=== PATIENT | female | born 1965 | race Caucasian/White ===

== ENCOUNTER 2022-10-15 15:02 | Inpatient (IN) | payer MEDICAID, SELFPAY ==
[2022-10-15 15:04] VITALS: BP 144/77; PULSE 68; RESP 16; TEMP 36.6; O2SAT 99; BMI 19.6
--- NOTE | 2022-10-15 15:17 | EX.ED.SAOD ---
HPI History of Present Illness Chief Complaint: Substance Abuse Informant: patient Narrative Narrative: Patient presents requesting detox from heroin. She actually went through detox when she went to skilled nursing in 2019. She was clean for 3 years but has been using again the last year. She used to inject but has not injected since 2019. She only snorts. She was trying to get help. She went to [facility] and they referred her here for treatment. Follow-up with On review of systems she does mention that she has been having some coughing and wheezing but she is also been out of her inhaler for about 2 weeks and she has been coughing for about 2 weeks. No fevers or chills. No sputum production. No chest pain. She does not have myalgias. She has no abdominal pain. She occasionally has diarrhea if she does not use but is not having it now. No blood in the stools. No abdominal pain. She is eating and drinking. No rashes. No headaches. Past medical history includes substance abuse, COPD, depression and restless leg Medications are albuterol inhaler, Remeron, Effexor, gabapentin Past surgeries include gallbladder Denies allergies Back pain lives independently. Currently no place to live. Positive smoker and drug use as above [facility] Medical History (Updated 10/15/22 @ 17:27 by Génesis Nielsen) COPD (chronic obstructive pulmonary disease) Hepatitis Smoker Substance abuse Allergy/AdvReac Type Severity Reaction Status Date / Time No Known Allergies Allergy Verified 10/15/22 15:04 Social History Smoking Status: Current every day smoker tobacco type: cigarettes ROS ROS ED Constitutional Constitutional ED: Denies chills or fever(s) Eyes Eyes: Denies change in vision ENT ENT ED: Denies rhinorrhea or sore throat Cardiovascular Cardiovascular: Denies chest pain, palpitations or racing heartbeat Respiratory/Chest Respiratory/Chest: Reports cough; Denies dyspnea Gastrointestinal Gastrointestinal: Reports diarrhea; Denies abdominal pain, nausea or vomiting Genitourinary Genitourinary ED: Denies dysuria Musculoskeletal Musculoskeletal: Denies myalgias Integumentary Denies rash Neurologic Neurologic: Denies headache(s) Psychiatric Psychiatric: Reports depression Endocrine Endocrinology: Denies polydipsia or polyuria Hematologic/Lymphatic Hematologic/Lymphatic: Denies lymphadenopathy Allergic/Immunologic Allergic/Immunologic ED: Denies urticaria EXAM Physical Exam Narrative Exam Narrative: Patient awake alert and very nontoxic while sitting in bed. She carries on a normal conversation and has no indication of dyspnea. HEENT shows no sign of trauma. I see no icterus. Mucous membranes are moist. Neck is supple. No JVD. No significant thyromegaly. Lungs do show very small amount of end expiratory wheezing. No rhonchi or rales. No pain with a deep breath. Heart is regular without murmur gallop rub or muffled tones. Peripheral pulses are normal. Abdomen is soft completely nontender Flank shows no CVAT. : No CVA or suprapubic tenderness Extremities show no sign of active track romero. Pulses are normal. Color is normal. Neuro: Patient awake alert normal gait coordination and speech. Psych: Patient is pleasant makes good eye contact. No sign of acute depression. Const Vital Signs: 10/15/22 15:04 Temperature 98 F Temperature Source Temporal Pulse Rate 68 Respiratory Rate 16 Blood Pressure 144/77 H Blood Pressure Mean 99 Pulse Ox 99 Oxygen Delivery Method Room Air MDM MDM MDM Narrative Medical decision making narrative: I phoned and discussed directly with our hospitalist the patient's history and exam and treatment done here. We did do blood work. His CBC shows no marked abnormalities. Electrolytes were normal. Liver function test showed no acute process. Talk screen is ordered but pending. Patient will be admitted for further management and detox. Lab Data Attestation: I reviewed the patient's lab results. Labs: Laboratory Results - last 24 hr 10/15/22 10/15/22 16:05 16:05 WBC 10.2 RBC 3.95 L Hgb 12.5 Hct 37.2 MCV 94.2 MCH 31.6 MCHC 33.6 RDW Std Deviation 45.1 H RDW Coeff of Megha 13.0 Plt Count 218 MPV 9.3 Immature Gran % (Auto) 0.500 Neut % (Auto) 51.4 Lymph % (Auto) 38.6 [place] % (Auto) 7.4 Eos % (Auto) 1.5 Baso % (Auto) 0.6 Absolute Neuts (auto) 5.3 Absolute Lymphs (auto) 3.94 Nucleated RBC % 0 Sodium 141 Potassium 3.6 Chloride 106 Carbon Dioxide 26.0 Anion Gap 9 BUN 7 Creatinine 0.60 Estim Creat Clear Calc 93.55 Est GFR (MDRD) Af Amer 133 Est GFR (MDRD) Non-Af 110 BUN/Creatinine Ratio 11.7 Glucose 110 H Calcium 9.2 Total Bilirubin 0.20 AST 9 L ALT 17 Alkaline Phosphatase 81 Total Protein 6.9 Albumin 3.5 Globulin 3.4 Albumin/Globulin Ratio 1.0 Discharge Plan Dx/Rx/DC Orders Clinical Impression: Heroin abuse, Desire for detoxification, COPD (chronic obstructive pulmonary disease), Bronchospasm Disposition Disposition: Acute Care Hospital [facility] Discharge Date/Time: 10/15/22 17:10
[2022-10-15] MEDS: Ipratropium/Albuterol Sulfate 3 ML AMPUL.NEB INHALATION (15:23)
--- NOTE | 2022-10-15 15:26 | CM.ED ---
SHAD Note Referral Reason: RAMP Referral Source: Case Find SW met with patient to discuss the RAMP program. Patient reports they are detoxing from heroin. Last use was this morning at 11:00am. Patient reports she used 30 cc which she snorts. Patient previously had detox at [facility] 7 years ago. Patient is linked with [facility] in [place] for MAT and IOP programming. Patient was advised that the RAMP program includes no outside food or visitors, no phone access and all personal items are secured. SHAD called Treatment Navigator and updated her regarding patient?s admission to RAMP. Plan: RAMP Paola HARP
[2022-10-15 16:13] LABS: Absolute Lymphocyte Count 3.94 X10^3/uL (0.83-4.51); Absolute Neutrophil Count 5.3 X10^3/uL (2.0-7.7); Basophil# 0.06 X10^3/uL; Basophil% 0.6 % (0-1); Eosinophil# 0.15 X10^3/uL; Eosinophils% 1.5 % (0-5); Hematocrit 37.2 % (37-47); Hemoglobin 12.5 g/dL (12.0-15.0); Lymphocyte # 3.94 X10^3/ul (0.83-4.51); Lymphocyte % 38.6 % (19-41); Mean Corp Hgb Conc 33.6 g/dL (32-36); Mean Corpuscular Hgb 31.6 pg (27.0-32.0); Mean Corpuscular Volume 94.2 fL (81-99); Mean Platelet Vol. 9.3 fl (6.2-12.0); Monocyte# 0.76 X10^3/uL; Monocyte% 7.4 % (0-10); NRBC Flagged by Analyzer 0 % (0-5); Neutrophil # 5.25 X10^3/uL (2.7-7.7); Neutrophil % 51.4 % (47-70); Platelet Count 218 K/mm3 (150-450); RBC Distribution Width SD 45.1 fl (35.1-43.9); Red Blood Count 3.95 M/mm3 (4.2-5.4); White Blood Count 10.2 K/mm3 (4.4-11.0)
--- NOTE | 2022-10-15 16:28 | HP.PCM.HOS_ITS ---
HPI - General General Date of Admission: 10/15/22 Date of Service: 10/15/22 Chief Complaint: opiate detox HPI Narrative BONNIE SMART, is a 57 F with a past medical history as outlined who presents via the ED for acute opiate withdrawal. Patient says she uses heroin. She was on Suboxone but says she has not taken it for about a month and a half and subsequently went back to using heroin. Last use was a few hours prior to this admission. She snorts the heroin and says she does not use IV. She also admits to some coughing and wheezing because she had been out of her inhaler for about 2 weeks. Her cough is nonproductive. She denies any fever or chills and denies any chest pain. She denies any tremors but does feel like she is going through withdrawal and admits to some abdominal cramps. Review of systems otherwise negative. Vitals in the ED were blood pressure 144/77, pulse rate of 68 and respiratory rate of 16 with temperature of 98 Fahrenheit. She was saturating at 99% on room air. CBC was essentially unremarkable and BMP was also pending at time of review. Urine tox also pending. She has been admitted to be managed for acute opiate detox. [facility] Allergy/AdvReac Type Severity Reaction Status Date / Time No Known Allergies Allergy Verified 10/15/22 15:04 Social History Smoking Status: Current every day smoker tobacco type: cigarettes ROS Constitutional Constitutional: Denies anorexia, chills, fatigue, fever(s), malaise or weakness Eyes Eyes: Denies change in vision ENT HEENT: Denies dysphagia, headache(s), hearing loss, nasal congestion, nasal discharge or sore throat Cardiovascular Cardiovascular: Denies chest pain, dyspnea on exertion, edema, lightheadedness, orthopnea, palpitations, paroxysmal nocturnal dyspnea, rapid heart rate or syncope Respiratory/Chest Respiratory/Chest: Reports cough, dyspnea, shortness of breath at rest and wheezing; Denies excessive phlegm production, productive cough or shortness of breath with exertion Gastrointestinal Gastrointestinal: Denies abdominal pain, constipation, diarrhea, nausea or vomiting Genitourinary Genitourinary: Denies burning urination, dysuria or urinary frequency Musculoskeletal Musculoskeletal: Denies back pain or joint pain Neurologic Neurologic: Denies confusion, dizziness, focal weakness, headache(s), seizures or syncope Psychiatric Psychiatric: Denies anxiety or depression Hematologic/Lymphatic Hematologic/Lymphatic: Denies anemia Vital Signs Vital Signs Vital Signs: 10/15/22 15:04 Temperature 98 F Temperature Source Temporal Pulse Rate 68 Respiratory Rate 16 Blood Pressure 144/77 H Blood Pressure Mean 99 Pulse Ox 99 Oxygen Delivery Method Room Air Weight Weight: 129 lb 6.581 oz Body Mass Index (BMI) 19.6 Physical Exam Const alert, oriented x3 and no apparent distress General Appearance: cooperative HEENT normocephalic, head/scalp atraumatic, hearing grossly normal bilaterally and moist oral mucous membranes Mouth: oral and palatal mucosa normal Eyes PERRL, EOMs intact bilaterally and conjunctivae normal Neck no lymphadenopathy, supple and no JVD Resp Resp Narrative: mildly diminished breath sounds bibasally, no wheezing, no crackles. on room air. Cardio regular rate, regular rhythm, S1 normal heart sound, S2 normal heart sound and no murmurs GI normal to inspection, nondistended, normoactive bowel sounds, soft to palpation, non-tender and non-distended Extremity normal to inspection, full ROM and no clubbing, cyanosis or edema Neuro oriented x3, CN's II-XII intact bilaterally, moves all extremities and no focal motor deficits Sensorium / Orientation: awake and alert Motor Exam: strength 5/5 throughout Psych affect normal Results Lab / Micro Data Result Diagrams: 10/15/22 16:05 10/15/22 16:05 Labs: Laboratory Results - last 24 hr 10/15/22 16:05: WBC 10.2, RBC 3.95 L, Hgb 12.5, Hct 37.2, MCV 94.2, MCH 31.6, MCHC 33.6, RDW Std Deviation 45.1 H, RDW Coeff of Megha 13.0, Plt Count 218, MPV 9.3, Immature Gran % (Auto) 0.500, Neut % (Auto) 51.4, Lymph % (Auto) 38.6, [place] % (Auto) 7.4, Eos % (Auto) 1.5, Baso % (Auto) 0.6, Absolute Neuts (auto) 5.3, Absolute Lymphs (auto) 3.94, Nucleated RBC % 0 Assessment & Plan Assessment/Plan (1) Desire for detoxification: (2) Heroin abuse: PLAN: Plan #Acute opioid withdrawal * admit to med surg * urine tox pending * start on opioid withdrawal protocol with buprenorphine * monitor CINA score * adjunctive meds for symptomatic relief * #Mild COPD exacerbation' * has not been using her inhalers for the past 2 weeks * place on PO prednisone 40mg daily * breathing treatment with bronchodilators * * #Nicotine dependence: counseled to quit. Nicotine patch 21mg daily DVT prophylaxis: low risk, encourage to ambulate Charges/Coding Visit Charges Inpatient E&M: 18756 Init Hosp L3
[2022-10-15 16:31] LABS: AST(SGOT) 9 U/L (15-37); Alanine Aminotransfer ALT/SGPT 17 U/L (13-56); Albumin, Serum 3.5 g/dL (3.2-5.0); Alkaline Phosphatase 81 U/L (45-117); Anion Gap 9 (5-15); BUN 7 mg/dL (7-18); BUN/Creat Ratio 11.7 RATIO (10-20); Calcium,Total 9.2 mg/dL (8.5-10.1); Chloride 106 mmol/L (98-107); EST Glomerular Filtration Rate 110 mL/min (>60); Est Glom Filt Rate - Afr Amer 133 mL/min (>60); Estimated Creatinine Clearance 93.55 ml/min; Globulin 3.4 g/dL (2.2-4.2); Glucose 110 mg/dL (74-106); Potassium 3.6 mmol/L (3.5-5.1); Protein, Total 6.9 g/dL (6.4-8.2); Sodium Level 141 mmol/L (136-145)
[2022-10-15 16:33] VITALS: BP 110/76; PULSE 71; RESP 14; TEMP 36.4; O2SAT 94
[2022-10-15 17:21] VITALS: BMI 19.5
[2022-10-15 17:30] VITALS: BP 118/70; PULSE 76; RESP 18; TEMP 36.9; O2SAT 98
[2022-10-15] MEDS: predniSONE 20 MG Tablet 40 MG PO (17:43)
--- NOTE | 2022-10-15 19:02 | CM.ED ---
SHAD called contact lens assistant navigator for [place], Nae, and requested patient be seen. Nae will follow up on 10/16/22. Paola HARP
[2022-10-15 22:03] VITALS: BP 155/89; PULSE 68; RESP 18; TEMP 36.8; O2SAT 98
[2022-10-16 03:39] VITALS: BP 158/86; PULSE 74; RESP 16; TEMP 36.9; O2SAT 99
[2022-10-16] MEDS: Methocarbamol 750 MG Tablet 1500 MG PO ×2 (04:11→10:45)
[2022-10-16] MEDS: hydrOXYzine PAM 25 MG Capsule 50 MG PO ×2 (04:11→10:45)
[2022-10-16] MEDS: cloNIDine HCl 0.1 MG Tablet PO ×2 (04:11→12:24)
[2022-10-16] MEDS: Buprenorphine HCl 2 MG TAB.SUBL 4 MG SL ×2 (04:16→12:24)
[2022-10-16 06:19] LABS: Amphetamine Urine VISTA NEGATIVE (<1000 ng/mL); Barbiturate Urine VISTA NEGATIVE (< 200 ng/mL); Benzodiazepine Urine VISTA NEGATIVE (< 200 ng/mL); Cocaine Urine VISTA NEGATIVE (< 300 ng/mL); Ecstacy Urine VISTA NEGATIVE (< 500 ng/mL); Methadone Urine VISTA NEGATIVE (< 300 ng/mL); PCP Urine VISTA NEGATIVE (< 25 ng/mL); THC Urine VISTA NEGATIVE (< 50 ng/mL); Vista UDS pH Range 7
[2022-10-16 06:50] LABS: Absolute Lymphocyte Count 1.56 X10^3/uL (0.83-4.51); Absolute Neutrophil Count 12.6 X10^3/uL (2.0-7.7); Basophil# 0.04 X10^3/uL; Basophil% 0.3 % (0-1); Hematocrit 41.4 % (37-47); Hemoglobin 13.9 g/dL (12.0-15.0); Lymphocyte # 1.56 X10^3/ul (0.83-4.51); Lymphocyte % 10.6 % (19-41); Mean Corp Hgb Conc 33.6 g/dL (32-36); Mean Corpuscular Hgb 31.2 pg (27.0-32.0); Mean Platelet Vol. 9.7 fl (6.2-12.0); Monocyte# 0.49 X10^3/uL; Monocyte% 3.3 % (0-10); NRBC Flagged by Analyzer 0 % (0-5); Neutrophil # 12.59 X10^3/uL (2.7-7.7); Neutrophil % 85.4 % (47-70); Platelet Count 242 K/mm3 (150-450); RBC Distribution Width SD 44.5 fl (35.1-43.9); Red Blood Count 4.45 M/mm3 (4.2-5.4); White Blood Count 14.7 K/mm3 (4.4-11.0)
[2022-10-16 07:16] LABS: Anion Gap 8 (5-15); BUN 13 mg/dL (7-18); BUN/Creat Ratio 21.7 RATIO (10-20); Chloride 106 mmol/L (98-107); EST Glomerular Filtration Rate 109 mL/min (>60); Est Glom Filt Rate - Afr Amer 131 mL/min (>60); Estimated Creatinine Clearance 92.76 ml/min; Glucose 123 mg/dL (74-106); Potassium 4.3 mmol/L (3.5-5.1); Sodium Level 138 mmol/L (136-145)
--- NOTE | 2022-10-16 07:36 | PN.HOSP_ITS ---
Subjective Subjective Patient is a 57-year-old lady with history of opioid dependence admitted with acute opioid withdrawal admitted to regular nursing floor for further management Objective Data Objective Data Vital Signs: Vital Signs Temp Pulse Resp BP Pulse Ox O2 Del Method 98.4 F 74 16 158/86 H 99 Room Air 10/16/22 03:39 10/16/22 03:39 10/16/22 03:39 10/16/22 03:39 10/16/22 03:39 10/16/22 03:39 Oxygen Delivery Method Room Air Weight: 58.202 kg Body Mass Index (BMI) 19.5 Intake & Output: Intake and Output for Last 24 Hours 10/14/22 10/15/22 10/16/22 23:59 23:59 23:59 Output Total 1000 / 1000 Balance -1000 / -1000 Lab / Micro Data Result Diagrams: 10/16/22 05:49 10/16/22 05:49 Labs: Laboratory Results - last 24 hr 10/15/22 16:05: WBC 10.2, RBC 3.95 L, Hgb 12.5, Hct 37.2, MCV 94.2, MCH 31.6, MCHC 33.6, RDW Std Deviation 45.1 H, RDW Coeff of Megha 13.0, Plt Count 218, MPV 9.3, Immature Gran % (Auto) 0.500, Neut % (Auto) 51.4, Lymph % (Auto) 38.6, [place] % (Auto) 7.4, Eos % (Auto) 1.5, Baso % (Auto) 0.6, Absolute Neuts (auto) 5.3, Absolute Lymphs (auto) 3.94, Nucleated RBC % 0 10/15/22 16:05: Sodium 141, Potassium 3.6, Chloride 106, Carbon Dioxide 26.0, Anion Gap 9, BUN 7, Creatinine 0.60, Estim Creat Clear Calc 93.55, Est GFR (MDRD) Af Amer 133, Est GFR (MDRD) Non-Af 110, BUN/Creatinine Ratio 11.7, Glucose 110 H, Calcium 9.2, Total Bilirubin 0.20, AST 9 L, ALT 17, Alkaline Phosphatase 81, Total Protein 6.9, Albumin 3.5, Globulin 3.4, Albumin/Globulin Ratio 1.0 10/16/22 05:30: Urine Opiates Screen POSITIVE H, Urine Methadone Screen NEGATIVE, Ur Barbiturates Screen NEGATIVE, Ur Phencyclidine Scrn NEGATIVE, Ur Amphetamines Screen NEGATIVE, MDMA (Ecstasy) Screen NEGATIVE, U Benzodiazepines Scrn NEGATIVE, Urine Cocaine Screen NEGATIVE, U Cannabinoids Screen NEGATIVE, Ur Drug Screen Comment 10/16/22 05:49: WBC 14.7 H, RBC 4.45, Hgb 13.9, Hct 41.4, MCV 93.0, MCH 31.2, MCHC 33.6, RDW Std Deviation 44.5 H, RDW Coeff of Megha 13.0, Plt Count 242, MPV 9.7, Immature Gran % (Auto) 0.400, Neut % (Auto) 85.4 H, Lymph % (Auto) 10.6 L, [place] % (Auto) 3.3, Eos % (Auto) 0.0, Baso % (Auto) 0.3, Absolute Neuts (auto) 12.6 H, Absolute Lymphs (auto) 1.56, Nucleated RBC % 0 10/16/22 05:49: Sodium 138, Potassium 4.3, Chloride 106, Carbon Dioxide 24.0, Anion Gap 8, BUN 13, Creatinine 0.60, Estim Creat Clear Calc 92.76, Est GFR (MDRD) Af Amer 131, Est GFR (MDRD) Non-Af 109, BUN/Creatinine Ratio 21.7 H, Glucose 123 H, Calcium 10.0 Physical Exam Narrative GENERAL: Agitated HEENT: Atraumatic; normocephalic EYES; Anicteric, Normal Conjunctiva NECK; supple, normal thyroid, RESPIRATORY: Diminished to auscultation CARDIOVASCULAR: Regular S1 S2, GI: soft, normoactive bowel sounds, : No Renal angle tenderness; EXTREMITIES: No edema, no clubbing, MUSCULOSKELETAL: no muscle wasting NEURO: Awake; no lateralizing signs. SKIN: No Rash PSYCH; agitated Assessment & Plan Assessment/Plan (1) Desire for detoxification: (2) Heroin abuse: PLAN: Plan Patient is a 57-year-old lady with history of opioid dependence admitted with acute opioid withdrawal admitted to regular nursing floor for further management 1. Acute opioid withdrawal Patient has been admitted to regular nursing floor managed with buprenorphine taper in addition to adjuvant medications for symptom relief 2. COPD with mild exacerbation ? Patient was placed on p.o. prednisone in addition to bronchodilator treatment and doxycycline 3. Tobacco dependence - Counseled on cessation, offered nicotine patch for tobacco cravings 4. DVT prophylaxis ? SC Lovenox Time spent in the patient's overall evaluation,decision-making process, review of diagnostic data, adjustment of management, discussion with other providers, nursing nursing and ancillary staff involved in patient's care documentation, 35 Minutes Charges/Coding Visit Charges Inpatient E&M: 12796 Subs Hosp L2
[2022-10-16 08:30] VITALS: BP 149/94; PULSE 78; RESP 20; TEMP 36.9; O2SAT 100
[2022-10-16] MEDS: predniSONE 20 MG Tablet 40 MG PO (08:37)
[2022-10-16] MEDS: Gabapentin 300 MG Capsule PO (08:38)
--- NOTE | 2022-10-16 09:01 | NURSING ---
Pt yelling at staff. Angry, Anxious and tearful. One minute pt wants to leave, next minute she wants to stay. Does not know what to do. This RN tried to talk with pt into staying. Pt is aware it is a volunterary program and wont be forced to stay but encouraged pt to stay. Pt agreed but then breakfast came. Pt was angry when she opened the lid and saw what it was I cant eat that. thats gross I just cant eat that. I wanna go home. This RN was asked to call Alexander her to let him know she was leaving and to come pick her up. Alexander called, he is aware and wants to talk to her and convince her to stay. This RN explained to Alexander that unless she was leaving could not let him talk to her. Alexander upset so León RN spoke with him. After León Mata charge nurse spoke with her , she went and talked with patient. Pt is agreeable to stay.
--- NOTE | 2022-10-16 14:18 | NURSING ---
Pt walking in [place] at first then started pacing. I can't do this. I need to go home. Pt signed AMA papers.
[2022-10-16 14:20] VITALS: BP 125/70; PULSE 67; RESP 22; TEMP 37.1; O2SAT 100
--- NOTE | 2022-10-16 14:54 | DS.PCM_ITS ---
Providers Date of Admission: 10/15/22 Date of Discharge: 10/16/22 Primary Care Physician: Maryann Waldron Reason For Visit: ACUTE OPIOID WITHDRAWAL Diagnosis Discharge Diagnosis (1) Desire for detoxification: Status: Acute (2) Heroin abuse: Status: Acute Code(s): F11.10 - Opioid abuse, uncomplicated Plan Patient is a 57-year-old lady with history of opioid dependence admitted with acute opioid withdrawal admitted to regular nursing floor for further management 1. Acute opioid withdrawal Patient has been admitted to regular nursing floor managed with buprenorphine taper in addition to adjuvant medications for symptom relief ? Patient signed out AMA yesterday after his admission 2. COPD with mild exacerbation ? Patient was placed on p.o. prednisone in addition to bronchodilator treatment and doxycycline 3. Tobacco dependence - Counseled on cessation, offered nicotine patch for tobacco cravings 4. DVT prophylaxis ? SC Lovenox Time spent in the patient's overall evaluation,decision-making process, review of diagnostic data, adjustment of management, discussion with other providers, nursing nursing and ancillary staff involved in patient's care documentation, 35 Minutes Hospital Course Summary of Care Provided Minutes Spent on Discharge: 35 Weight / BMI Weight Weight: 58.202 kg Body Mass Index (BMI) 19.5 ABG / Lab / Microbiology Data Result Diagrams: 10/16/22 05:49 10/16/22 05:49 Laboratory: Laboratory Results - last 24 hr 10/15/22 16:05: WBC 10.2, RBC 3.95 L, Hgb 12.5, Hct 37.2, MCV 94.2, MCH 31.6, MCHC 33.6, RDW Std Deviation 45.1 H, RDW Coeff of Megha 13.0, Plt Count 218, MPV 9.3, Immature Gran % (Auto) 0.500, Neut % (Auto) 51.4, Lymph % (Auto) 38.6, [place] % (Auto) 7.4, Eos % (Auto) 1.5, Baso % (Auto) 0.6, Absolute Neuts (auto) 5.3, Absolute Lymphs (auto) 3.94, Nucleated RBC % 0 10/15/22 16:05: Sodium 141, Potassium 3.6, Chloride 106, Carbon Dioxide 26.0, Anion Gap 9, BUN 7, Creatinine 0.60, Estim Creat Clear Calc 93.55, Est GFR (MDRD) Af Amer 133, Est GFR (MDRD) Non-Af 110, BUN/Creatinine Ratio 11.7, Glucose 110 H, Calcium 9.2, Total Bilirubin 0.20, AST 9 L, ALT 17, Alkaline Phosphatase 81, Total Protein 6.9, Albumin 3.5, Globulin 3.4, Albumin/Globulin Ratio 1.0 10/16/22 05:30: Urine Opiates Screen POSITIVE H, Urine Methadone Screen NEGATIVE, Ur Barbiturates Screen NEGATIVE, Ur Phencyclidine Scrn NEGATIVE, Ur Amphetamines Screen NEGATIVE, MDMA (Ecstasy) Screen NEGATIVE, U Benzodiazepines Scrn NEGATIVE, Urine Cocaine Screen NEGATIVE, U Cannabinoids Screen NEGATIVE, Ur Drug Screen Comment 10/16/22 05:49: WBC 14.7 H, RBC 4.45, Hgb 13.9, Hct 41.4, MCV 93.0, MCH 31.2, MCHC 33.6, RDW Std Deviation 44.5 H, RDW Coeff of Megha 13.0, Plt Count 242, MPV 9.7, Immature Gran % (Auto) 0.400, Neut % (Auto) 85.4 H, Lymph % (Auto) 10.6 L, [place] % (Auto) 3.3, Eos % (Auto) 0.0, Baso % (Auto) 0.3, Absolute Neuts (auto) 12.6 H, Absolute Lymphs (auto) 1.56, Nucleated RBC % 0 10/16/22 05:49: Sodium 138, Potassium 4.3, Chloride 106, Carbon Dioxide 24.0, Anion Gap 8, BUN 13, Creatinine 0.60, Estim Creat Clear Calc 92.76, Est GFR (MDRD) Af Amer 131, Est GFR (MDRD) Non-Af 109, BUN/Creatinine Ratio 21.7 H, Glucose 123 H, Calcium 10.0 Meaningful Use Info Meaningful Use Diagnoses (Choose all that apply): None applicable Discharge Plan Admission Admit Date/Time: 10/15/22 16:33 Attending Provider: Brent Villasenor Primary Care Provider: Maryann Waldron Consulting Providers: Tram Grey Discharge Orders/Prescriptions Referrals / Follow Up: Maryann Waldron [Other] Disposition Disposition (needs filled in before D/C Order can be placed): Against Medical Advice Charges/Coding Visit Charges Inpatient E&M: 98292 Disch Hosp >30min
== END 2022-10-16 14:30 | disposition left against medical advice (07) | DRG 770 ==
LOC: ED 15:48 → MS3 16:50
PROVIDERS: Admitting Provider Student in an Organized Health Care Education/Training Program; Emergency Provider Emergency Medicine; Visit Provider Internal Medicine
DX: F11.23 Opioid dependence with withdrawal (principal); J44.1 Chronic obstructive pulmonary disease with (acute) exacerbation; F17.210 Nicotine dependence, cigarettes, uncomplicated
CPT/HCPCS: 36415; 80048; 80053; 80307; 85025; 94640; 97802; 99283

== ENCOUNTER 2023-03-09 14:23 | Inpatient (IN) | payer MEDICAID, SELFPAY ==
[2023-03-09 14:25] VITALS: BP 163/89; PULSE 91; RESP 16; TEMP 36.8; O2SAT 100; BMI 19.0
--- NOTE | 2023-03-09 15:03 | EX.ED.SAOD ---
HPI History of Present Illness Chief Complaint: Substance Abuse Detail of Chief Complaint: Request for detox Informant: patient Narrative Narrative: Patient presents requesting detox from heroin. She has been using intermittently for the past 30 years. Her last use was at 4 AM this morning and states she typically snorts heroin. She states she starting to feel little bit anxious but otherwise has not had significant withdrawal symptoms at this time. She was in the detox program here at the hospital in September so is familiar with the requirements. PFSH PFS Medical History COPD (chronic obstructive pulmonary disease) Hepatitis Smoker Substance abuse Home Medications albuterol sulfate 90 mcg/actuation aerosol inhaler (Ventolin HFA) 90 mcg inhalation Q4H PRN PRN Shortness Of Breath 03/09/23 [History Last Taken Unknown] buprenorphine 8 mg-naloxone 2 mg sublingual film 1 film buccal BID 03/09/23 [History Last Taken Unknown] bupropion HCl 150 mg 24 hr tablet, extended release 150 mg PO DAILY 03/09/23 [History Last Taken Unknown] gabapentin 800 mg tablet 800 mg PO 4XD 03/09/23 [History Last Taken Unknown] Allergy/AdvReac Type Severity Reaction Status Date / Time No Known Allergies Allergy Verified 03/09/23 14:26 Social History Smoking Status: Current every day smoker tobacco type: cigarettes ROS ROS ED Constitutional Constitutional ED: Denies chills or fever(s) Eyes Eyes: Denies change in vision or discharge from eye(s) ENT ENT ED: Denies discharge from eye(s), rhinorrhea or sore throat Cardiovascular Cardiovascular: Denies chest pain or palpitations Respiratory/Chest Respiratory/Chest: Denies cough or dyspnea Gastrointestinal Gastrointestinal: Denies abdominal pain, nausea or vomiting Genitourinary Genitourinary ED: Denies difficulty urinating or dysuria Musculoskeletal Musculoskeletal: Denies back pain or extremity pain Integumentary Denies Abrasions or rash Neurologic Neurologic: Denies headache(s) or weakness Psychiatric Psychiatric: Reports anxiety; Denies depression Allergic/Immunologic Allergic/Immunologic ED: Denies lip swelling or urticaria EXAM Physical Exam Const Vital Signs: 03/09/23 14:25 Temperature 98.2 F Temperature Source Temporal Pulse Rate 91 Respiratory Rate 16 Blood Pressure 163/89 H Blood Pressure Mean 113 Pulse Ox 100 Oxygen Delivery Method Room Air Positive well nourished and well developed General Appearance ED: well developed HEENT Reports normocephalic and head/scalp atraumatic Eyes PERRL and EOMs intact bilaterally Neck supple Chest Wall inspection of chest normal and palpation of chest normal Resp normal respiratory effort and clear to auscultation bilaterally Cardio regular rate and regular rhythm GI normal to inspection, nondistended, normoactive bowel sounds Palpation: soft Extremity normal to inspection Neuro oriented x3 and no sensory deficits noted Sensorium / Orientation: alert Motor Exam: strength 5/5 throughout Psych mental status grossly normal Skin no rashes or lesions noted MDM MDM MDM Narrative Medical decision making narrative: Lab work for addiction medicine obtained. CBC was a white count of 12.6 with normal hemoglobin. No left shift appreciated. Chemistry studies and LFTs are unremarkable. Urine tox screen is negative. EtOH is less than 3. I will speak with hospitalist regarding admission to the detox program. Lab Data Labs: Laboratory Results - last 24 hr 03/09/23 03/09/23 03/09/23 14:50 15:10 15:10 WBC 12.6 H RBC 4.11 L Hgb 13.2 Hct 38.9 MCV 94.6 MCH 32.1 H MCHC 33.9 RDW Std Deviation 44.1 H RDW Coeff of Megha 12.7 Plt Count 207 MPV 9.4 Immature Gran % (Auto) 0.400 Neut % (Auto) 57.9 Lymph % (Auto) 30.8 Barnes % (Auto) 8.7 Eos % (Auto) 1.5 Baso % (Auto) 0.7 Absolute Neuts (auto) 7.3 Absolute Lymphs (auto) 3.89 Nucleated RBC % 0 Sodium 136 Potassium 3.7 Chloride 102 Carbon Dioxide 28.0 Anion Gap 6 BUN 9 Creatinine 0.62 Estim Creat Clear Calc 87.45 Est GFR (MDRD) Af Amer 126 Est GFR (MDRD) Non-Af 104 BUN/Creatinine Ratio 14.5 Glucose 79 Calcium 9.8 Total Bilirubin 0.30 AST 10 L ALT 15 Alkaline Phosphatase 95 Total Protein 7.8 Albumin 4.0 Globulin 3.8 Albumin/Globulin Ratio 1.1 Urine Opiates Screen NEGATIVE Urine Methadone Screen NEGATIVE Ur Barbiturates Screen NEGATIVE Ur Phencyclidine Scrn NEGATIVE Ur Amphetamines Screen NEGATIVE MDMA (Ecstasy) Screen NEGATIVE U Benzodiazepines Scrn NEGATIVE Urine Cocaine Screen NEGATIVE U Cannabinoids Screen NEGATIVE Ur Drug Screen Comment Ethyl Alcohol 03/09/23 15:10 WBC RBC Hgb Hct MCV MCH MCHC RDW Std Deviation RDW Coeff of Megha Plt Count MPV Immature Gran % (Auto) Neut % (Auto) Lymph % (Auto) Barnes % (Auto) Eos % (Auto) Baso % (Auto) Absolute Neuts (auto) Absolute Lymphs (auto) Nucleated RBC % Sodium Potassium Chloride Carbon Dioxide Anion Gap BUN Creatinine Estim Creat Clear Calc Est GFR (MDRD) Af Amer Est GFR (MDRD) Non-Af BUN/Creatinine Ratio Glucose Calcium Total Bilirubin AST ALT Alkaline Phosphatase Total Protein Albumin Globulin Albumin/Globulin Ratio Urine Opiates Screen Urine Methadone Screen Ur Barbiturates Screen Ur Phencyclidine Scrn Ur Amphetamines Screen MDMA (Ecstasy) Screen U Benzodiazepines Scrn Urine Cocaine Screen U Cannabinoids Screen Ur Drug Screen Comment Ethyl Alcohol < 3.0 Discharge Plan Triage Chief Complaint: Substance Abuse ED Provider: Tigist Russ Dx/Rx/DC Orders Clinical Impression: Heroin abuse, Desire for detoxification Prescriptions: No Action albuterol sulfate [Ventolin HFA] 90 mcg/actuation HFA aerosol inhaler 90 mcg INHALATION Q4H PRN PRN (Reason: Shortness Of Breath) Label Comments: INHALE 1-2 PUFFS EVERY 4-6 HRS NEEDED gabapentin 800 mg Tablet 800 mg PO 4XD bupropion HCl 150 mg Tablet Extended Release 24 Hr 150 mg PO DAILY buprenorphine-naloxone 8-2 mg Film 1 film BUCCAL BID Primary Care Provider: Maryann Waldron Referrals: Maryann Waldron [Other] Disposition Disposition: Acute Care Hospital [facility]
[2023-03-09 15:24] LABS: Absolute Lymphocyte Count 3.89 X10^3/uL (0.83-4.51); Absolute Neutrophil Count 7.3 X10^3/uL (2.0-7.7); Basophil# 0.09 X10^3/uL; Basophil% 0.7 % (0-1); Eosinophil# 0.19 X10^3/uL; Eosinophils% 1.5 % (0-5); Hematocrit 38.9 % (37-47); Hemoglobin 13.2 g/dL (12.0-15.0); Lymphocyte # 3.89 X10^3/ul (0.83-4.51); Lymphocyte % 30.8 % (19-41); Mean Corp Hgb Conc 33.9 g/dL (32-36); Mean Corpuscular Hgb 32.1 pg (27.0-32.0); Mean Corpuscular Volume 94.6 fL (81-99); Mean Platelet Vol. 9.4 fl (6.2-12.0); Monocyte% 8.7 % (0-10); NRBC Flagged by Analyzer 0 % (0-5); Neutrophil % 57.9 % (47-70); Platelet Count 207 K/mm3 (150-450); RBC Distribution Width CV 12.7 % (11.6-14.6); RBC Distribution Width SD 44.1 fl (35.1-43.9); Red Blood Count 4.11 M/mm3 (4.2-5.4); White Blood Count 12.6 K/mm3 (4.4-11.0)
[2023-03-09 15:44] LABS: ALB/GLOB Ratio 1.1 RATIO (0.9-2.4); AST(SGOT) 10 U/L (15-37); Alanine Aminotransfer ALT/SGPT 15 U/L (13-56); Alcohol, Blood (Medical)-Serum < 3.0 mg/dL; Alkaline Phosphatase 95 U/L (45-117); Anion Gap 6 (5-15); BUN 9 mg/dL (7-18); BUN/Creat Ratio 14.5 RATIO (10-20); Calcium,Total 9.8 mg/dL (8.5-10.1); Chloride 102 mmol/L (98-107); Creatinine, Serum 0.62 mg/dL (0.55-1.02); EST Glomerular Filtration Rate 104 mL/min (>60); Est Glom Filt Rate - Afr Amer 126 mL/min (>60); Estimated Creatinine Clearance 87.45 ml/min; Globulin 3.8 g/dL (2.2-4.2); Glucose 79 mg/dL (74-106); Potassium 3.7 mmol/L (3.5-5.1); Protein, Total 7.8 g/dL (6.4-8.2); Sodium Level 136 mmol/L (136-145)
[2023-03-09 16:00] LABS: Amphetamine Urine VISTA NEGATIVE (<1000 ng/mL); Barbiturate Urine VISTA NEGATIVE (< 200 ng/mL); Benzodiazepine Urine VISTA NEGATIVE (< 200 ng/mL); Cocaine Urine VISTA NEGATIVE (< 300 ng/mL); Ecstacy Urine VISTA NEGATIVE (< 500 ng/mL); Methadone Urine VISTA NEGATIVE (< 300 ng/mL); PCP Urine VISTA NEGATIVE (< 25 ng/mL); THC Urine VISTA NEGATIVE (< 50 ng/mL); Vista UDS pH Range 7
[2023-03-09 16:17] VITALS: BP 147/86; PULSE 95; RESP 16; TEMP 36.9; O2SAT 98
[2023-03-09 16:58] VITALS: BP 142/75; PULSE 62; RESP 18; TEMP 36.9; O2SAT 98
[2023-03-09 16:59] VITALS: BMI 18.8
--- NOTE | 2023-03-09 17:04 | NURSING ---
pt snorts heroin i use everything i use about 1.5-2g, per day. the last use was 0400 this am. smokes 1ppd cigarettes.
[2023-03-09] MEDS: Dicyclomine 10 MG Capsule 20 MG PO (17:12)
[2023-03-09] MEDS: Ondansetron 8 MG Tablet PO (17:13)
[2023-03-09] MEDS: hydrOXYzine PAM 25 MG Capsule 50 MG PO (17:13)
[2023-03-09] MEDS: cloNIDine HCl 0.1 MG Tablet PO (17:13)
[2023-03-09] MEDS: Methocarbamol 750 MG Tablet 1500 MG PO (17:16)
--- NOTE | 2023-03-09 18:24 | HP.PCM_ITS ---
HPI - General General Date of Admission: 03/09/23 Date of Service: 03/09/23 Chief Complaint: Heroin abuse HPI Narrative BONNIE SMART, is a 57 F with a history of heroin abuse who presents to the hospital desirous of detoxification. Last use was this morning. Patient generally snorts heroin. Does not use it IV. Uses about 1 to 1 1/2 g/day. Patient already going into withdrawals and complaining of abdominal cramps, aches and pains and some diaphoresis. Denies any chest pain or shortness of breath or palpitations. Did not report any fever or chills. [facility] Medical History COPD (chronic obstructive pulmonary disease) Hepatitis Smoker Substance abuse Home Medications albuterol sulfate 90 mcg/actuation aerosol inhaler (Ventolin HFA) 90 mcg inhalation Q4H PRN PRN Shortness Of Breath 03/09/23 [History Last Taken Unknown] buprenorphine 8 mg-naloxone 2 mg sublingual film 1 film buccal BID 03/09/23 [History Last Taken Unknown] bupropion HCl 150 mg 24 hr tablet, extended release 150 mg PO DAILY 03/09/23 [History Last Taken Unknown] gabapentin 800 mg tablet 800 mg PO 4XD 03/09/23 [History Last Taken Unknown] Allergy/AdvReac Type Severity Reaction Status Date / Time No Known Allergies Allergy Verified 03/09/23 14:26 Social History Smoking Status: Current every day smoker tobacco type: cigarettes ROS ROS Narrative Denies any chest pain or shortness of breath. All other systems reviewed and essentially negative as above in the body of the history. Vital Signs Vital Signs Vital Signs: 03/09/23 14:25 03/09/23 16:17 03/09/23 16:58 Temperature 36.8 C 36.9 C 36.9 C Temperature Source Temporal Temporal Oral Pulse Rate 91 95 62 Respiratory Rate 16 16 18 Respiratory Effort Blood Pressure 163/89 H 147/86 H Blood Pressure [BP] 142/75 H Blood Pressure Mean 113 106 Blood Pressure Mean [BP] 97 Blood Pressure Source [BP] Monitor Blood Pressure Position [BP] Semi-Fowlers Blood Pressure Location [BP] Right Arm Pulse Ox 100 98 98 Oxygen Delivery Method Room Air Room Air Room Air 03/09/23 17:05 Temperature Temperature Source Pulse Rate Respiratory Rate Respiratory Effort Normal Blood Pressure Blood Pressure [BP] Blood Pressure Mean Blood Pressure Mean [BP] Blood Pressure Source [BP] Blood Pressure Position [BP] Blood Pressure Location [BP] Pulse Ox Oxygen Delivery Method Weight Weight: 56.245 kg Body Mass Index (BMI) 18.8 Physical Exam Narrative General exam. Middle-aged woman, appears older than stated age, appears uncomfortable, in some distress HEENT. Oral mucosa slightly dry. No pallor or jaundice Neck. Neck is supple Heart. First and second sounds are no murmurs Lungs. Clear to auscultation. Abdomen. Flat soft nontender. Extremities. No pedal edema [employer]. Conscious alert oriented x3. Results Medical Records Data Attestation: I reviewed the patient's medical records Lab / Micro Data Attestation: I reviewed the patient's lab results. Result Diagrams: 03/09/23 15:10 03/09/23 15:10 Labs: Laboratory Results - last 24 hr 03/09/23 14:50: Urine Opiates Screen NEGATIVE, Urine Methadone Screen NEGATIVE, Ur Barbiturates Screen NEGATIVE, Ur Phencyclidine Scrn NEGATIVE, Ur Amphetamines Screen NEGATIVE, MDMA (Ecstasy) Screen NEGATIVE, U Benzodiazepines Scrn NEGA TIVE, Urine Cocaine Screen NEGATIVE, U Cannabinoids Screen NEGATIVE, Ur Drug Screen Comment 03/09/23 15:10: WBC 12.6 H, RBC 4.11 L, Hgb 13.2, Hct 38.9, MCV 94.6, MCH 32.1 H , MCHC 33.9, RDW Std Deviation 44.1 H, RDW Coeff of Megha 12.7, Plt Count 207, MPV 9.4, Immature Gran % (Auto) 0.400, Neut % (Auto) 57.9, Lymph % (Auto) 30.8, Dickens % (Auto) 8.7, Eos % (Auto) 1.5, Baso % (Auto) 0.7, Absolute Neuts (auto) 7.3, Absolute Lymphs (auto) 3.89, Nucleated RBC % 0 03/09/23 15:10: Sodium 136, Potassium 3.7, Chloride 102, Carbon Dioxide 28.0, Anion Gap 6, BUN 9, Creatinine 0.62, Estim Creat Clear Calc 87.45, Est GFR (MDRD) Af Amer 126, Est GFR (MDRD) Non-Af 104, BUN/Creatinine Ratio 14.5, Glucose 79, Calcium 9.8, Total Bilirubin 0.30, AST 10 L, ALT 15, Alkaline Phosphatase 95, Total Protein 7.8, Albumin 4.0, Globulin 3.8, Albumin/Globulin Ratio 1.1 03/09/23 15:10: Ethyl Alcohol < 3.0 Assessment & Plan Assessment/Plan (1) Heroin abuse: PLAN: Plan Assessment and plan 1. Heroin abuse with LA withdrawal. Patient desirous of detoxification. Admit and consult outreach and education social worker. Meanwhile keep on opiate withdrawal protocol with buprenorphine. Other supportive care. 2. Tobacco abuse. Nicotine replacement therapy while in the hospital for cravings. 3. COPD. Stable. Not in exacerbation. Charges/Coding Visit Charges Inpatient E&M: 53848 Init Hosp L3
[2023-03-09 22:00] VITALS: BP 104/70; PULSE 60; RESP 14; TEMP 36.7; O2SAT 98
--- NOTE | 2023-03-09 22:06 | NURSING ---
Patient uncooperative to care and refusing to let this RN do an assessment. This RN asked patient if she would like any PRNs for her anxiety or restlessness. Patient stated Fuck you. What the hell are you going to give me Vistaril and Trazodone? Those don't work. Fuck Trazodone and fuck this program, its no detox place. Get out of my room.
[2023-03-10 05:21] VITALS: BP 115/68; PULSE 59; RESP 17; TEMP 36.7; O2SAT 96
[2023-03-10] MEDS: Gabapentin 300 MG Capsule PO (05:29)
[2023-03-10] MEDS: Methocarbamol 750 MG Tablet 1500 MG PO (05:29)
--- NOTE | 2023-03-10 08:15 | NURSING ---
pt awake, states she would like to leave AMA and sign form. Pt cooperative and form signed.
--- NOTE | 2023-03-10 08:49 | PCM.PN.HOSP ---
Subjective Subjective To the hospital for detox however now she wants to leave [place] Objective Data Objective Data Vital Signs: Vital Signs Temp Pulse Resp BP Pulse Ox O2 Del Method 98.0 F 59 L 17 115/68 96 Room Air 03/10/23 05:21 03/10/23 05:21 03/10/23 05:21 03/10/23 05:21 03/10/23 05:21 03/10/23 05:21 Oxygen Delivery Method Room Air Weight: 124 lb Body Mass Index (BMI) 18.8 Lab / Micro Data Result Diagrams: 03/09/23 15:10 03/09/23 15:10 Labs: Laboratory Results - last 24 hr 03/09/23 14:50: Urine Opiates Screen NEGATIVE, Urine Methadone Screen NEGATIVE, Ur Barbiturates Screen NEGATIVE, Ur Phencyclidine Scrn NEGATIVE, Ur Amphetamines Screen NEGATIVE, MDMA (Ecstasy) Screen NEGATIVE, U Benzodiazepines Scrn NEGATIVE, Urine Cocaine Screen NEGATIVE, U Cannabinoids Screen NEGATIVE, Ur Drug Screen Comment 03/09/23 15:10: WBC 12.6 H, RBC 4.11 L, Hgb 13.2, Hct 38.9, MCV 94.6, MCH 32.1 H, MCHC 33.9, RDW Std Deviation 44.1 H, RDW Coeff of Megha 12.7, Plt Count 207, MPV 9.4, Immature Gran % (Auto) 0.400, Neut % (Auto) 57.9, Lymph % (Auto) 30.8, [place] % (Auto) 8.7, Eos % (Auto) 1.5, Baso % (Auto) 0.7, Absolute Neuts (auto) 7.3, Absolute Lymphs (auto) 3.89, Nucleated RBC % 0 03/09/23 15:10: Sodium 136, Potassium 3.7, Chloride 102, Carbon Dioxide 28.0, Anion Gap 6, BUN 9, Creatinine 0.62, Estim Creat Clear Calc 87.45, Est GFR (MDRD) Af Amer 126, Est GFR (MDRD) Non-Af 104, BUN/Creatinine Ratio 14.5, Glucose 79, Calcium 9.8, Total Bilirubin 0.30, AST 10 L, ALT 15, Alkaline Phosphatase 95, Total Protein 7.8, Albumin 4.0, Globulin 3.8, Albumin/Globulin Ratio 1.1 03/09/23 15:10: Ethyl Alcohol < 3.0 Physical Exam Narrative General: Alert, Oriented x3, Cooperative, irritated HEENT: Atraumatic, PERRLA, EOMI, Normocephalic Oral: Moist Mucosa Neck: Supple, No JVD Lungs: Clear to auscultation, Normal air movement, No rhonchi, No wheeze, No rales Cardiovascular: Regular rate, Regular Rhythm, Normal S1, Normal S2, No murmurs Abdomen: Soft, Non Tender, Non-Distended, No Hepato-splenomegaly Extremities: No edema, Capillary Refill Less than 3 Seconds Skin: No rashes, No breakdown Musculoskeletal: No Tenderness to Palpation of Joints or Extremities Neurological: Cranial nerves II-XII grossly intact, Motor Exam 5/5 strength throughout, Sensory exam intact to light touch and pain Psych/Mental Status: Normal Affect, Appropriate Assessment & Plan Assessment/Plan (1) Heroin abuse: PLAN: Plan 1. Opiate withdrawal/tobacco abuse ? She would like to leave AMA ? She changes her mind we will continue with the opiate withdrawal protocol ? We will have her follow-up with 180 ? Discussed cessation, continue with nicotine patch 2. COPD ? Stable ? Not in exacerbation DVT: Ambulation Charges/Coding Visit Charges Inpatient E&M: 41929 Subs Hosp L2
== END 2023-03-10 08:40 | disposition left against medical advice (07) | DRG 770 ==
LOC: ED 16:03 → MS3 16:21
PROVIDERS: Admitting Provider Internal Medicine; Emergency Provider Emergency Medicine; Visit Provider Family Medicine
DX: F11.23 Opioid dependence with withdrawal (principal); F17.210 Nicotine dependence, cigarettes, uncomplicated; J44.9 Chronic obstructive pulmonary disease, unspecified
CPT/HCPCS: 80053; 80307; 82077; 85025; 99283